=== PATIENT | male | born 1935 | race Caucasian/White ===

== ENCOUNTER → 2019-11-01 | Outpatient (CLI) | payer OTHER | LOC: RAD 10:21 | PROVIDERS: ATTEND Orthopaedic Surgery Orthopaedic Surgery of the Spine | DX: M54.5 Low back pain (principal); M48.062 Spinal stenosis, lumbar region with neurogenic claudication; M51.36 Other intervertebral disc degeneration, lumbar region; M43.16 Spondylolisthesis, lumbar region; M25.78 Osteophyte, vertebrae; I70.0 Atherosclerosis of aorta; Z98.890 Other specified postprocedural states ==

== ENCOUNTER → 2019-12-04 | Outpatient (CLI) | payer OTHER ==
[~2019-12-04] VITALS: Ht 185.4 cm; Wt 78.5 kg
[~2019-12-04] MED LIST: ALVESCO6.1 GM INH; AMITRIPTYLINE H25 M4 PO; CETIRIZINE HCL5 MG PO; CHEST CONGESTI400 MG PO; CRESTOR40 MG PO; DILTIAZEM 24HR240 M1 PO; ELIQUIS5 MG PO; FLOMAX0.4 MG PO; FLONASE 0.05%50 MCG NARES; FUROSEMIDE 40 M40 MG PO; NORCO 5-325 TA1 EAC2 PO; POTASSIUM20 PO; PROAIR DIGIHAL90 MCG INH; PROSCAR 5MG TABL5 M1 PO; STIOLTO RESPIMAT4 GM INH
[2019-12-04 14:44] VITALS: BP 113/59
--- NOTE | 2019-12-04 15:18 | NUR ---
Pain Clinic Assessment: 1. History of Osteoarthritis: History of Rheumatoid Arthritis: 2. Height: 6 ft. 1 in. 185.4 cm. Weight: 173.0 lb. oz. 78.472 kg. Patient's BMI: 22.8 3. Vital Signs: BP: 113/59 Pulse: 82 Resp: 14 Temp: 02 Sat: 100 ECG Mon: 4. Pain Intensity: 4 5. Fall Risk: Dizziness: N Needs help standing or walking: Y Fallen in the last 3 months: N Fall risk comments: 6. Patient on Blood Thinner: 7. History of Hypertension: 8. Opioid Therapy greater than 6 weeks: Opiate Contract Signed: 9. Risk Assessment Tool Provided: 10. Functional Assessment Tool: 11. Recreational Drug Use: Drug Type: Tobacco Use: Tobacco Type: Amount or Packs/day: How Many Years: Alcohol Use: Frequency: Quant:
--- NOTE | 2019-12-04 15:49 | NUR ---
Pain Clinic Assessment: 1. History of Osteoarthritis: Left Lower Extremity Right Lower Extremity Right Upper Extremity Right Lower Extremity History of Rheumatoid Arthritis: Not Applicable 2. Height: 6 ft. 1 in. 185.4 cm. Weight: 173.0 lb. oz. 78.472 kg. Patient's BMI: 22.8 3. Vital Signs: BP: 113/59 Pulse: 82 Resp: 14 Temp: 02 Sat: 100 ECG Mon: 4. Pain Intensity: 4 5. Fall Risk: Dizziness: N Needs help standing or walking: Y Fallen in the last 3 months: N Fall risk comments: 6. Patient on Blood Thinner: SAM 7. History of Hypertension: Y 8. Opioid Therapy greater than 6 weeks: Y Opiate Contract Signed: 9. Risk Assessment Tool Provided: 10. Functional Assessment Tool: 11. Recreational Drug Use: Never Drug Type: Tobacco Use: Never Smoker Tobacco Type: Amount or Packs/day: How Many Years: Alcohol Use: Past use Frequency: Quant:
--- NOTE | 2019-12-10 14:16 | HPC ---
[facility] [place] [address] PAIN MANAGEMENT CONSULTATION Name: YUMIKO BRUNNER Mickey Room #: REG THADDEUS Urszula#: [id number] Admission: 12/04/19 Attend Phys: Julius Baptiste DO Discharge: Date of : 37 Report #: [id number] THIS REPORT FOR: cc: Mikki Mata Kathleen M. DO Johnson, James E. DO ~ DATE OF SERVICE: 12/04/2019 REFERRING PHYSICIAN: Dr. Debra Ceja. CHIEF COMPLAINT: Low back pain, left lower extremity pain and paresthesias. HISTORY OF PRESENT ILLNESS: As you know, the patient is an 84-year-old male who reports a 5-6 year history of low back pain, left lower extremity pain and paresthesias. The patient has sought evaluation through multiple physicians groups, undergoing epidural injections under fluoroscopic guidance as well as discussions of medication management treatment options for ongoing pain. He sought evaluation from a surgical standpoint with Dr. Ceja who recommended a more conservative approach initially, discussing the possibility of undergoing a spinal cord stimulator trial. The patient was subsequently then referred to our clinic after seeing Dr. Ceja on 11/28/2019. The patient indicates today pain is continuous. He describes the pain as burning, numbness and tingling. Places current pain score 4/10, daily average at 8/10, worst pain has been is 10/10. The patient states pain is exacerbated with activity such as walking, improves with sitting down and repositioning. The patient indicates previous epidural injections did provide some benefit, but they lost their efficacy. He had been on medications in the past, which did well initially, but then ultimately lost efficacy. He sought evaluation with Orthopedic Surgery to discuss surgical options and subsequently referred to our clinic to discuss the use of a spinal cord stimulator as a treatment course. PAST MEDICAL HISTORY: 1. Bleeding tendencies secondary to chronic anticoagulation. 2. Anemia. 3. Asthma. 4. Hypertension. 5. Chronic obstructive pulmonary disease. 6. Coronary artery disease. PAST SURGICAL HISTORY: See chart. SOCIAL HISTORY: The patient reports himself as a nonsmoker. He does have an extensive history of smoking 1.5-2 packs a day since 195, this is a recent discontinuation of this activity. He denies IV or illicit drug use, admits to [address] [place] [address] PAIN MANAGEMENT CONSULTATION Name: YUMIKO BRUNNER Room #: REG THADDEUS Seaman#: [id number] Admission: 12/04/19 Attend Phys: Julius Baptiste DO Discharge: Date of : 37 Report #: [id number] an occasional alcohol beverage. 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 He is not receiving disability income, he is not receiving disability benefits, and he is not in litigation in regards to pain. He is accompanied by his present in room today. REVIEW OF SYMPTOMS: Positive for recent weight change, fatigue and weakness, eye disease, wearing corrective eyewear, cataracts, nosebleeds, shortness of breath with any activity, atrial fibrillation requiring anticoagulation, frequent and recurrent coughs, COPD, frequent urination, nocturia, incontinence and dribbling to urine, memory loss with confusion, heat and cold intolerance, bleeding and bruising tendencies secondary to anticoagulation, anemia, chronic low back pain and lower extremity pain. All other review of systems negative per 12-point review of systems other than those listed in the history of present illness. Pain impact score of 50/70 indicating severe interference of daily activities secondary to pain. ALLERGIES: TRAMADOL. CURRENT MEDICATIONS: Tamsulosin 0.4 mg once a day, lovastatin 40 mg per day, K-Dur 20 mcg 4 tabs per day, tiotropium bromide once a day, Shaniko 5/325 one tab every 6 hours p.r.n. for pain, guaifenesin 400 mg once a day, furosemide 40 mg per day, Flonase 2 sprays each nostril per day, finasteride 5 mg per day, diltiazem 240 mg once a day, Zyrtec 5 mg once a day, Eliquis 5 mg b.i.d., amitriptyline 25 mg p.o. at bedtime, Alvesco inhaled once a day, albuterol 2 puffs q.4 hours p.r.n. IMAGING: Myelogram shows a moderate stenosis at L2-L3, severe stenosis at L3-L4 and L4-L5, moderate stenosis at L5-S1. PQRS: The patient has known arthritic changes of the lumbar spine. No rheumatoid arthritis. He is placing current pain score 4/10. He is a fall risk, but has not had a fall in the last 3 months. He does utilize ambulatory devices for balance. He is on blood thinners in the form of Eliquis. He is treated for hypertension. He is on chronic opioids, but reportedly has a low opioid addiction potential based on our assessment tool. Pain impact 50/70 indicating severe interference of daily activities secondary to pain. PHYSICAL EXAMINATION: VITAL SIGNS: Blood pressure 113/59, pulse 82, respiratory rate 14 and unlabored. The patient is 100% on room air, height 6 feet 1 inch tall, weight 173 pounds, BMI calculated 22.8. GENERAL: Well-developed, well-nourished, well-hydrated, frail-appearing 84-year-old male, appears older than stated age. He is placing pain today at 07/11. [facility] [address] [place] [address] PAIN MANAGEMENT CONSULTATION Name: YUMIKO BRUNNER Mickey Room #: [facility].#: [id number] Admission: 12/04/19 Attend Phys: Julius Baptiste DO Discharge: Date of : 37 Report #: [id number] HEENT: Normocephalic, atraumatic. Pupils equal, round and reactive. NEUROLOGIC: Speech is fluent for patient. He is deemed a fair historian. LUNGS: Decreased breath sounds bilaterally, prolonged expiratory phase. CARDIOVASCULAR: Irregularly irregular without gallop or rub. ABDOMEN: Soft with active bowel sounds. EXTREMITIES: Show no clubbing, no cyanosis, no appreciable edema. MUSCULOSKELETAL: Lower extremity strength is weakened bilaterally, appears to be a significant amount of deconditioning. Muscle bulk and tone is symmetrical in comparing left lower extremity over right. Seated straight leg raising negative. Supine straight leg raising is positive on the left. Anuja's test is negative. Modified Gaenslen's is positive for axial low back pain. Ankle clonus negative. Babinski is negative. Gait is antalgic favoring left lower extremity over right. The patient does have bandaging over the right elbow secondary to a dehiscent wound, status post olecranon bursectomy. ASSESSMENT: 1. Symptomatic lumbar radiculopathy. 2. 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 3. Displacement of lumbar intervertebral disk with radiculopathy. 4. Lumbosacral spondylosis with radiculopathy. 5. Chronic intractable pain. PLAN: 1. Based on today's physical exam and history the patient has provided, the description the patient uses in regards to pain as well as location of symptoms, it would appear he is suffering from lumbar radiculopathy secondary to central canal stenosis. This has been confirmed with a recent myelogram, which shows severe central canal stenosis at L3-L4 and L4-L5 and moderate central canal stenosis at L5-S1. The patient has sought evaluation through surgery, but has been advised due to his comorbidities, other treatment options would be recommended. He was subsequently then referred to our clinic to discuss spinal cord stimulator technology. The patient has been seen by other pain services in the past and received epidural injections and advised "there were no other options for treatment." He then sought evaluation through Orthopedic Surgery, who saw the patient, but due to his comorbidities was then referred to our clinic to discuss the spinal cord stimulator technology as a treatment course. The patient reports pain level today of about 4/10, which is fairly typical for him. We discussed with the patient the spinal cord stimulator technology and how it could potentially improve overall pain. We also discussed the one week trial of the device itself, which allows the patient to determine if it is going to be an effective treatment option for him. I did discuss with the patient my concern about his poor wound healing in regards to his left elbow, status post olecranon bursectomy. Given that this device is an implanted device and is made of material that could become infected, he would have to be very vigilant about [address] [address] PAIN MANAGEMENT CONSULTATION Name: YUMIKO BRUNNER Room #: REG THADDEUS Seaman#: [id number] Admission: 12/04/19 Attend Phys: Julius Baptiste, DO Discharge: Date of : 37 Report #: [id number] watching for any infections and maintaining good wound care during the permanent implant if he were to move forward. He is understanding of our concern. He is interested in the device. He was given information both in digital and written form today to review at his earliest convenience. 2. The patient will be sent for psychiatric evaluation as part of the workup for the spinal cord stimulating device. This is required by Medicare regulations. The patient was given the names of psychiatrists in the area that do perform this valuable task so that we can determine if he is a candidate from a psychosocial standpoint. He will contact the psychiatrist at his earliest convenience. Once he has completed the psychiatric evaluation, he will contact our clinic to advice of its finalization and we will find the paperwork and review those findings once they are available. If he is proven to be sound from a psychiatric standpoint, we will then move forward with scheduling the temporary implant for trial. 3. No medication changes made at today's visit. We did discuss that he would have to come off his Eliquis prior to the trial. He needs to be off the Eliquis for 3 days based on REBECA guidelines. He will need to clear with his prescribing physician that he can come off the Eliquis for those days prior to the implantation of the device and then he will also have to remain off of a full dose of Eliquis for the 7 days during the trial. Once he has completed the trial and the leads are removed, he could then go back to a full dose of Eliquis. He needs to gain clearance to be able to do the recommended anticoagulation changes. Once he has achieved this authorization, he will send it over to our clinic advising of such. 4. We wish to thank Dr. Ceja for the opportunity to see this patient in consultation. We will keep you apprised of his response to the spinal cord stimulator trial requested. Again, we wish to thank you for the opportunity to see this patient in consultation. <ELECTRONICALLY SIGNED> By: Julius Baptiste DO 12/10/19 1416 [id number] Julius Baptiste DO /nt
== END ==
LOC: PAIN 07:02
PROVIDERS: ATTEND Anesthesiology Pain Medicine
DX: M51.16 Intervertebral disc disorders with radiculopathy, lumbar region (principal); M79.605 Pain in left leg; R20.2 Paresthesia of skin; M47.27 Other spondylosis with radiculopathy, lumbosacral region; G89.29 Other chronic pain; M48.061 Spinal stenosis, lumbar region without neurogenic claudication; Z79.899 Other long term (current) drug therapy

== ENCOUNTER → 2020-01-21 | Outpatient (CLI) | payer OTHER ==
[~2020-01-21] VITALS: Ht 185.4 cm; Wt 76.7 kg
[2020-01-21 07:08] VITALS: BP 117/73
--- NOTE | 2020-01-21 07:11 | NUR ---
Pain Clinic Assessment: 1. History of Osteoarthritis: Left Lower Extremity Right Lower Extremity Right Upper Extremity Right Lower Extremity History of Rheumatoid Arthritis: Not Applicable 2. Height: 6 ft. 1 in. 185.4 cm. Weight: 169.0 lb. oz. 76.658 kg. Patient's BMI: 22.3 3. Vital Signs: BP: 117/73 Pulse: 97 Resp: 16 Temp: 02 Sat: 96 ECG Mon: 4. Pain Intensity: 6-7 5. Fall Risk: Dizziness: N Needs help standing or walking: Y Fallen in the last 3 months: Y Fall risk comments: 6. Patient on Blood Thinner: SAM 7. History of Hypertension: Y 8. Opioid Therapy greater than 6 weeks: Y Opiate Contract Signed: 9. Risk Assessment Tool Provided: LOW-3 10. Functional Assessment Tool: 50/70 11. Recreational Drug Use: Never Drug Type: Tobacco Use: Never Smoker Tobacco Type: Amount or Packs/day: How Many Years: Alcohol Use: Past use Frequency: Quant:
--- NOTE | 2020-01-22 11:11 | HPC ---
[facility] [place] [address] PAIN MANAGEMENT CONSULTATION Name: MOISES BRUNNERMaria Luz Arevalo Room #: REG GARLAND Urszula#: [id number] Admission: 01/21/20 Attend Phys: Julius Baptiste DO Discharge: Date of : 37 Report #: [id number] CC: Julius Jacques NP DATE OF SERVICE: 01/21/2020 REFERRING PHYSICIAN: Debra Olguin NP PRIMARY CARE PHYSICIAN: Mikki Mayberry Meng, DO CHIEF COMPLAINT: Low back pain, left lower extremity pain with paresthesias. HISTORY OF PRESENT ILLNESS: As you know, the patient is an 84-year-old male, reporting a 6-year history of low back pain, left lower extremity pain with paresthesias. He sought evaluation through multiple physicians undergoing epidural injections, medication management, all of which led to no significant pain improvement. He sought evaluation from a surgical standpoint, was advised to trial a spinal cord stimulator as he was not an optimal candidate given his underlying health. He was seen in consultation by our services 12/04/2019 where he was evaluated and determined to be a suitable candidate for a spinal cord stimulator trial. He was sent for psychiatric evaluation. He completed the psychiatric evaluation, this was reviewed. There was no psychopathology concerning in that documentation. He was then established today's appointment to undergo trial implantation of spinal cord stimulator to assist in lumbar radicular symptoms and left lower extremity pain. The patient reports today pain level of anywhere from 6-7/10. He has had no changes in his medical history since our last visit. He has been off his Eliquis for 3 days in preparation for today's procedure. ALLERGIES: TRAMADOL. CURRENT MEDICATIONS: Tamsulosin, lovastatin, K-Dur, tiotropium bromide, [place], guaifenesin, furosemide, Flonase, finasteride, diltiazem, Zyrtec, Eliquis, amitriptyline, Alvesco and albuterol. SOCIAL HISTORY: The patient reports himself as a nonsmoker. He does have an extensive history of 1.5-2 packs of tobacco use since 1955. He has recently discontinued this activity. Denies IV or illicit drug use. Admits to occasional alcohol beverage. 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 IMAGING: No new imaging available. PQRS: The patient has known arthritic changes of the right hip, bilateral knees, bilateral shoulders, bilateral elbows, low back and cervical spine. He is not suffering from rheumatoid arthritis, nor does he have a diagnosis of rheumatoid arthritis. He is placing current pain 6-7/10. He is a fall risk and has had falls in the past 3 months, but does utilize a roller walker for ambulation. No fall in last 30 days. He is on blood thinner in the form of Eliquis, discontinued the medication 3 days ago in preparation for today's procedure. He is treated for hypertension. He is on chronic opioids and reportedly has a low opioid addiction potential based on our assessment tool. Pain impact 50/70, severe interference of daily activities secondary to pain. PHYSICAL EXAMINATION: VITAL SIGNS: Blood pressure 117/73, pulse is 97, respiratory rate 16 and somewhat labored, O2 sat 96% on 4 liters nasal cannula. Height 6 feet 1 inch tall. Weight 169 pounds. BMI calculated 22.3. GENERAL: Well-developed, well-nourished, frail appearing 84-year-old male, appears older than stated age, placing pain today at 6-7/10. HEENT: Normocephalic, atraumatic. Pupils equal, round and reactive. Speech is fluent for patient. EXTREMITIES: Show no clubbing, no cyanosis. No appreciable edema. MUSCULOSKELETAL: Lower extremity strength is deconditioned bilaterally, though symmetrical in its presentation. Muscle bulk and tone is symmetrical in lower extremities, though once again deconditioned. Seated straight leg raising is negative. Supine straight leg raising positive on the left. Anuja's test is negative. ASSESSMENT: 1. Symptomatic lumbar radiculopathy. 2. 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 3. Displacement of lumbar intervertebral disk with radiculopathy. 4. Lumbosacral spondylosis with radiculopathy. 5. Lumbar degeneration. 6. Chronic intractable pain. PLAN: 1. The patient returns today in followup visit to undergo spinal cord stimulator trial implantation. He has completed successfully his evaluation for the device. He has undergone psychiatric evaluation, which showed no concerning psychopathology. He has discontinued his Eliquis in preparation for today's procedure. The patient and I did discuss the risks and the benefits of this procedure today. These risks include but are not necessarily limited to bleeding, bruising, infection, worsening pain, no relief of pain, also risk of temporary or permanent muscle weakness, temporary or permanent nerve damage, possible paralysis, post-dural puncture headache and . The patient states understood and wished to proceed. 2. No medication changes made at today's visit. The patient will continue current medical therapy as previously prescribed. 3. We will see the patient back in followup visit in 1 week for explantation of the spinal cord stimulating device and determine if moving on with permanent implant would be recommended. We are hopeful the patient will see good and prolonged benefit with the use of the spinal cord stimulator implanted today for a trial. DESCRIPTION OF PROCEDURE: Two lead spinal cord stimulator trial implantation under fluoroscopic guidance. After informed consent was obtained, a 22-gauge IV Hep-Lock was placed in the patient's right upper extremity. The patient was given IV prophylactic antibiotic infused slowly over 30 minutes prior to procedure. The patient was then taken to the fluoroscopy suite, placed in prone position with 2 pillows under the abdomen to decrease lumbar lordosis. Cardiopulmonary monitoring was established and the patient's vital signs were monitored throughout the procedure. The patient's thoracolumbar spine was then prepped and draped with chlorhexidine and draped in the sterile surgical fashion. No IV sedation was provided prior to procedure. AP imaging was obtained to identify and cedrick the midline positions of T10 through L2 spinous processes. The skin was anesthetized with 7 mL of 1% lidocaine on the right and 6 mL of lidocaine 1% on the left. This was done prior to the introduction of the 14-gauge 4-inch Tuohy needles. Skin entry site on the right was approximately at the level of the L1 vertebral body. Needle was advanced using a paramedian approach to the right of midline at approximately 45-degree angle. Loss of resistance to air was utilized to verify placement within the epidural space. Epidural space was entered at the T12-L1 interspace. Lateral fluoroscopic view was obtained to confirm the position of the tip of the Tuohy needle within the epidural space. Aspiration was noted to be negative for both heme or cerebrospinal fluid. The patient did not complain of pain or paresthesias during the needle placement. The spinal cord stimulating lead was then advanced through the Tuohy needle under direct visualization within the midline. The tip of the stimulating lead was aligned with the midpoint of the T7 vertebral body. This was located within the midline. Our attention was then directed to the left side. The skin entry site at this site was at the L1 vertebral body level. The 14-gauge 4-inch Tuohy needle was advanced using a paramedian approach to the left of midline. This was done at approximately 45-degree angle. Loss of resistance air was utilized to verify placement within the epidural space. Epidural space was entered at the T12-L1 interspace. Lateral fluoroscopic view was obtained to confirm position of the tip of the Tuohy needle within the epidural space. Aspiration was noted to be negative for both heme or cerebrospinal fluid. The patient did not complain of pain or paresthesias during the needle placement. The spinal cord stimulating lead was then advanced through the Tuohy needle under direct visualization. The tip of the lead was then advanced to the T8 vertebral body. A lead was not noted to be just left of midline, approximately 1-2 mm. The stylets were then removed from the leads followed by the Tuohy needles. This was done under direct visualization to confirm no movement or lead positioning change during the explantation of these 2 pieces of equipment. The stimulating leads were then attached to the externalized device today the entire system of the leads and device were then anchored to the patient's back with Steri-Strips and OpSite bandaging. The patient tolerated procedure well, carefully escorted to recovery room in stable condition. No apparent complications. The patient was advised if he begins to experience any concerning symptoms such as fever, chills, night sweats, drainage at the insertion site, worsening back pain, headache or any other symptoms concerning of infection, he is to contact the on-call pain physician. He is given a 24-hour number to contact that physician. If he has difficulty with continuation of pain, he is to contact the device traveling representative for adjustments in the device. The patient tolerated procedure well. After meeting our discharge criteria, the patient was then discharged home. He has plans to meet back with us in 1 week for explantation of device and discuss the efficacy. <ELECTRONICALLY SIGNED> By: Jluius Baptiste DO 01/22/20 1111 [id number] Julius Baptiste DO /nt
== END | disposition home or self-care (01) ==
LOC: PAIN 06:48
PROVIDERS: ATTEND Anesthesiology Pain Medicine
DX: M51.16 Intervertebral disc disorders with radiculopathy, lumbar region (principal); M48.061 Spinal stenosis, lumbar region without neurogenic claudication; M47.27 Other spondylosis with radiculopathy, lumbosacral region; G89.29 Other chronic pain; I10 Essential (primary) hypertension; M19.90 Unspecified osteoarthritis, unspecified site; Z98.890 Other specified postprocedural states; Z79.899 Other long term (current) drug therapy; Z79.01 Long term (current) use of anticoagulants; Z88.8 Allergy status to other drugs, medicaments and biological substances

== ENCOUNTER → 2020-01-28 | Outpatient (CLI) | payer OTHER ==
[~2020-01-28] VITALS: Ht 185.4 cm; Wt 78.1 kg
[2020-01-28 10:43] VITALS: BP 126/76
--- NOTE | 2020-01-28 14:27 | NUR ---
Pain Clinic Assessment: 1. History of Osteoarthritis: Left Lower Extremity Right Lower Extremity Right Upper Extremity Right Lower Extremity History of Rheumatoid Arthritis: Not Applicable 2. Height: 6 ft. 1 in. 185.4 cm. Weight: 172.2 lb. oz. 78.109 kg. Patient's BMI: 22.7 3. Vital Signs: BP: 126/76 Pulse: 92 Resp: 18 Temp: 02 Sat: 100 ECG Mon: 4. Pain Intensity: 2 5. Fall Risk: Dizziness: N Needs help standing or walking: Y Fallen in the last 3 months: N Fall risk comments: 6. Patient on Blood Thinner: JOSE JUANQUIS 7. History of Hypertension: Y 8. Opioid Therapy greater than 6 weeks: Y Opiate Contract Signed: 9. Risk Assessment Tool Provided: LOW-3 10. Functional Assessment Tool: 50/70 11. Recreational Drug Use: Never Drug Type: Tobacco Use: Never Smoker Tobacco Type: Amount or Packs/day: How Many Years: Alcohol Use: Past use Frequency: Quant:
--- NOTE | 2020-01-29 11:24 | HPC ---
[facility] [address] [place] [address] PAIN MANAGEMENT CONSULTATION Name: MYESHAYUMIKO C Room #: REG GARLAND Daniel.#: [id number] Admission: 01/28/20 Attend Phys: Julius Baptiste DO Discharge: Date of : 39 Report #: [id number] CC: Julius Pierre DATE OF SERVICE: 01/28/2020 REFERRING PHYSICIAN: Mikki Mayberry Meng, DO CHIEF COMPLAINT: Low back pain, left lower extremity pain and paresthesias. HISTORY OF PRESENT ILLNESS: As you know, the patient is an 84-year-old male who returns today in followup visit having successful spinal cord stimulator trial with reported 80% improvement in overall pain. The patient is very pleased with response to the spinal cord stimulator trial. Returning today in followup visit for explantation of device and begin the process of scheduling permanent implantation. The patient indicates pain level of 2/10 with the device on as high as 6/10 with the device off. He is very pleased with response to the device, returning today for explantation. ALLERGIES: TRAMADOL. CURRENT MEDICATIONS: Tamsulosin, rosuvastatin, potassium chloride, albuterol, amitriptyline, Eliquis, diltiazem, finasteride, fluticasone, furosemide, gabapentin, guaifenesin, hydrocodone and tiotropium bromide. SOCIAL HISTORY: The patient reports himself a nonsmoker. He has an extensive past history of smoking with 2 packs a day since 1956. He recently discontinued this activity. He denies IV or illicit drug use. Admits to occasional alcohol beverage. 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 He is accompanied by his present in room today. IMAGING: No new imaging available. PQRS: The patient has arthritic changes of the right hip, bilateral knees, bilateral shoulders, bilateral elbows, low back, lumbar spine and cervical spine. No rheumatoid arthritis. He has a pain score today 2/10. He is a fall risk, but uses a roller walker for ambulation, has not had a fall in 3 months. He is on blood thinners. He is treated for hypertension. He is on chronic opioids, has a low opiate addiction potential. Pain impact is 49/70, severe interference of daily activities secondary to pain. PHYSICAL EXAMINATION: VITAL SIGNS: Blood pressure 126/76, pulse 92, respiratory rate 18 and unlabored. He is 100% on 5 liters nasal cannula. GENERAL: Well-developed, but frail appearing 84-year-old male, appearing older than stated age, pain is rated today 2/10. HEENT: Normocephalic, atraumatic. Pupils equal, round and reactive. NEUROLOGIC: Speech is fluent for patient. He is wearing a nasal cannula. EXTREMITIES: Show no clubbing, no cyanosis. No appreciable edema. MUSCULOSKELETAL: Lower extremity strength is deconditioned bilaterally. Muscle bulk and tone is symmetrical in lower extremities. Supine straight leg raising remains positive. ASSESSMENT: 1. Symptomatic lumbar radiculopathy. 2. Severe central canal stenosis of lumbar spine. 3. Displacement of lumbar intervertebral disk with radiculopathy. 4. Lumbosacral spondylosis with radiculopathy. 5. Lumbar degeneration. 6. Chronic intractable pain. PLAN: 1. The patient returns today in followup visit for explantation of spinal cord stimulating device. He is very pleased with the Nevro device receiving 80% improvement in overall pain. He is now down to a level of 2/10, which is tolerable for him. He wishes to move forward with permanent implant. He was referred to our clinic by his orthopedic surgeon, Dr. Debra Pierre at [facility]. We will be contacting their clinic to determine whether or not she would like him to return to have the permanent implant done by herself or if she would prefer that he is referred to another facility for permanent implant. We will contact the patient with this information once it has been obtained. 2. No medication changes made at today's visit. He will continue current medical therapy as previously prescribed. 3. We will see the patient back in followup visit on an as needed basis. We are pleased to see the patient has done well with the trial implantation and wish him well with the permanent implant. PROCEDURE NOTE DESCRIPTION OF PROCEDURE: Explantation of spinal cord stimulating leads. The patient was placed in a seated position. We removed all Steri-Strips and OpSite bandaging. There were two leads in place. There is no erythema or drainage at the insertion sites. The bandaging was clean and dry. The leads were removed slowly without complications. The patient did not feel any pain or paresthesias during the explantation of the two leads. Both leads had their 8 electrodes and tips were intact. Sterile bandages were placed over each injection sites. <ELECTRONICALLY SIGNED> By: Julius Baptiste DO 01/29/20 [id number] Julius Baptiste DO /nt
== END ==
LOC: PAIN 06:55
PROVIDERS: ATTEND Anesthesiology Pain Medicine
DX: M47.26 Other spondylosis with radiculopathy, lumbar region (principal); M51.16 Intervertebral disc disorders with radiculopathy, lumbar region; M48.061 Spinal stenosis, lumbar region without neurogenic claudication; G89.29 Other chronic pain; Z79.891 Long term (current) use of opiate analgesic

== ENCOUNTER → 2020-03-18 | Outpatient (CLI) | payer OTHER ==
[~2020-03-18] MED LIST changes: +OXYCODONE HCL5 MG PO
--- NOTE | ~2020-03-18 | HPC ---
[facility] [place] [address] PAIN MANAGEMENT CONSULTATION Name: MOISES BRUNNERMaria Luz Arevalo Room #: REG GARLANDWinston Seaman#: [id number] Admission: 03/18/20 Attend Phys: Julius Baptiste DO Discharge: Date of : 37 Report #: [id number] THIS REPORT FOR: cc: Mikki Mata Kathleen M. DO Johnson, James E. DO ~ DATE OF SERVICE: 03/18/2020 CHIEF COMPLAINT: Postoperative incision check. HISTORY OF PRESENT ILLNESS: As you know, the patient is a very pleasant 84-year-old male who was referred to our clinic to trial a spinal cord stimulator trial implantation under fluoroscopic guidance. He successfully completed that trial with up to 80% improvement in overall pain. He has now gone to permanent implant, which was done last week. He is currently receiving about 60% improvement in overall pain. He returns today for adjustments in the programming, but also for the first in the series of postsurgical incision checks. The patient indicates pain today at a level of 3/10, which is quite an improvement from his evaluations in the past where he was reporting pain up to 8/10. He states that his incisions have been somewhat uncomfortable, but they are beginning to show significant resolution of pain. He returns to have of the spinal cord stimulator readjusted and evaluation of the incisions. ALLERGIES: TRAMADOL. CURRENT MEDICATIONS: Tamsulosin, rosuvastatin, potassium chloride, albuterol, amitriptyline, Eliquis, diltiazem, finasteride, fluticasone, furosemide, gabapentin, guaifenesin, hydrocodone tiotropium bromide and Keflex. SOCIAL HISTORY: The patient reports himself a nonsmoker. He has an extensive past history of smoking with 2 packs a day since 6. Denies IV or illicit drug use. Admits to occasional alcohol beverage. 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 He is accompanied by his present in room today. IMAGING: No new imaging available. PQRS: The patient has known arthritic changes of the lumbar spine, right hip, bilateral knees, bilateral shoulders, bilateral elbows and cervical spine. No rheumatoid arthritis. He is placing pain intensity today about 3/10. He is a fall risk, but has not had a fall in last 3 months. He is utilizing a roller walker for ambulation and balance. He is on a blood thinner in the form of Eliquis and has continued the therapy. He is also treated for hypertension. He is on chronic opioids, has a low opiate addiction potential. Pain impact is 50/70, severe interference of daily activities secondary to pain. PHYSICAL EXAMINATION: [address] [address] PAIN MANAGEMENT CONSULTATION Name: YUMIKO BRUNNER Room #: REG Winston Seaman#: [id number] Admission: 03/18/20 Attend Phys: Julius Baptiste DO Discharge: Date of : 37 Report #: [id number] VITAL SIGNS: Blood pressure 141/67, pulse 90, respiratory rate 18 with nasal cannula, O2 sat 98%. GENERAL: Well-developed, somewhat frail appearing 84-year-old male, appearing his age. He is placing current pain score at 3/10. HEENT: Normocephalic, atraumatic. Pupils are round. Nasal cannula in place. He is wearing a mask in compliance with COVID-19 regulations. EXTREMITIES: Show no clubbing, no cyanosis. No appreciable edema. MUSCULOSKELETAL: The patient has 2 incisions, one in the thoracolumbar area and one over the right buttock. Evaluation of the wounds show well-healing incisions. There is no erythema or drainage around the sites. There appeared to be doing very well. The patient had re-bandaging done while in the clinic today. ASSESSMENT: 1. Symptomatic lumbar radiculopathy. 2. Severe central canal stenosis of lumbar spine. 3. Displacement of lumbar intervertebral disk with radiculopathy. 4. Lumbosacral spondylosis with radiculopathy. 5. Lumbar degeneration. 6. Chronic intractable pain. PLAN: 1. The patient returns today in followup visit having now reached the one-week post-surgical timeframe from the permanent implant of a spinal cord stimulator. His incisions are healing very well. I have changed the bandaging today and he appears to be doing very well from a pain standpoint. There are mild changes in the skin tissue around the incision site consistent with healing process. There is no erythema, no drainage, no concerning findings. We have re-bandaged the area and have advised the patient to follow up with us next week for the second in the evaluations. I did advise the patient if he notes any changes in his condition in regards to these incisions, contact our clinic. We will see him more rapidly. 2. No medication changes made at today's visit. The patient will continue current medical therapy as prior prescribed. 3. The patient spent about 40 minutes of time today reprogramming his spinal cord stimulator and adjusting the coverage for his ongoing pain. We are hopeful the patient will see good benefit with this adjustment. He is currently saying he is experiencing about 60% improvement. We are hoping the adjustments made today will provide even greater analgesic benefit. 4. We will see the patient back in followup visit in 2 weeks for a second in the series of surgical incision checks. By: 1720 [id number] Julius Baptiste DO /nt
[2020-03-18 12:52] VITALS: BP 141/67
--- NOTE | 2020-03-18 12:59 | NUR ---
Pain Clinic Assessment: 1. History of Osteoarthritis: Left Lower Extremity Right Lower Extremity Right Upper Extremity Right Lower Extremity History of Rheumatoid Arthritis: Not Applicable 2. Height: ft. in. cm. Weight: lb. oz. kg. Patient's BMI: 3. Vital Signs: BP: 141/67 Pulse: 90 Resp: 18 Temp: 02 Sat: 98 ECG Mon: 4. Pain Intensity: 3 5. Fall Risk: Dizziness: N Needs help standing or walking: N Fallen in the last 3 months: N Fall risk comments: 6. Patient on Blood Thinner: ELIQUIS 7. History of Hypertension: Y 8. Opioid Therapy greater than 6 weeks: Y Opiate Contract Signed: 9. Risk Assessment Tool Provided: LOW-3 10. Functional Assessment Tool: 50/70 11. Recreational Drug Use: Never Drug Type: Tobacco Use: Never Smoker Tobacco Type: Amount or Packs/day: How Many Years: Alcohol Use: Past use Frequency: Quant:
== END ==
LOC: PAIN 06:59
PROVIDERS: ATTEND Anesthesiology Pain Medicine
DX: G89.4 Chronic pain syndrome (principal); M47.26 Other spondylosis with radiculopathy, lumbar region; M51.16 Intervertebral disc disorders with radiculopathy, lumbar region; M48.061 Spinal stenosis, lumbar region without neurogenic claudication; Z79.891 Long term (current) use of opiate analgesic

== ENCOUNTER → 2020-03-25 | Outpatient (CLI) | payer OTHER ==
[~2020-03-25] VITALS: Ht 182.9 cm; Wt 76.5 kg
--- NOTE | ~2020-03-25 | HPC ---
[facility] [place] [address] PAIN MANAGEMENT CONSULTATION Name: YUMIKO BRUNNER Mickey Room #: REG THADDEUS Seaman#: [id number] Admission: 03/25/20 Attend Phys: Ayah Maurer Discharge: Date of : 37 Report #: [id number] THIS REPORT FOR: cc: Mikki Mata Kathleen M. DO Hocker, Amanda CNS ~ DATE OF SERVICE: 03/25/2020 CHIEF COMPLAINT: Postoperative incisional check. HISTORY OF PRESENT ILLNESS: As you know, this is a pleasant 84-year-old gentleman who returns to the pain clinic today for a spinal cord stimulator implantation wound check. He is now 2 weeks post-implantation from his spinal cord stimulator and rating his pain score a 6/10. He currently believes his pain is at least 60% better in his legs and 50% better overall improvement in his pain. He does report he was adjusted this morning by a Maikol martell over the phone and then having it adjusted again today here in the clinic. He believes that this may continue to increase his overall pain control in his low back and left leg. The patient reports his pain is typically worse with walking and relieved with sitting. His is here with him today and believes that he is having better pain control than he had before the implantation. ALLERGIES: TRAMADOL. CURRENT LIST OF MEDICATIONS: Oxycodone p.r.n., Flomax, Crestor, potassium, [place] p.r.n., guaifenesin, Lasix, Flonase, finasteride, diltiazem, Zyrtec, Eliquis, amitriptyline and ProAir. PQRS: 1. He has osteoarthritis in his upper and lower extremities. Denies any rheumatoid arthritis. 2. Height is 6 feet, weight is 168, BMI is 22. 3. Vital signs 126/85, pulse is 103, respirations 18, oxygen sat is 93%. 4. Pain score 6/10. 5. Denies dizziness, does not need help walking, though does use a walker for ambulation, has not fallen in the last 3 months. The patient is on Eliquis as well as medications for hypertension. 6. The patient's risk assessment tool is low. Functional assessment is 50/70. 7. Recreational drug use, he denies. He is not a smoker and does not drink alcohol. PHYSICAL EXAMINATION: GENERAL: This is a well-developed 84-year-old gentleman who appears his stated age, utilizing a walker today, rating his pain score at 6/10. HEENT: Normocephalic, atraumatic. Extraocular eye muscles are intact. He is on oxygen and [place] [address] PAIN MANAGEMENT CONSULTATION Name: YUMIKO BRUNNER Room #: REG [facility] Urszula#: [id number] Admission: 03/25/20 Attend Phys: Ayah Maurer Discharge: Date of : 37 Report #: [id number] EXTREMITIES: No clubbing, no cyanosis, no edema. MUSCULOSKELETAL: The patient's incision in his thoracic, lumbar area is clean, dry and intact with no drainage noted on his dressing. The incision on his right buttock is intact with no drainage as well. Dressings appear clean, dry and intact. Tenderness at the site on the right buttock from his beltline. ASSESSMENT: 1. Symptomatic lumbar radiculopathy. 2. Severe central canal stenosis of lumbar spine. 3. Displacement of lumbar intervertebral disk with radiculopathy. 4. Spinal cord stimulator placement. 5. Lumbar degeneration. 6. Chronic intractable pain. PLAN: 1. We discussed treatment options with the patient today. The [employer] rep was here and reprogrammed the patient. The patient feels that current program has already been beneficial in decreasing some of his lower extremity pain. He is hopeful that it will continue to improve his pain and thankful that he can contact them via the phone for adjustments. 2. We did change the dressings on his thoracic, lumbar and right buttock with new dressings, encouraged the patient to continue to wear a dressing for comfort over his right buttock until it is well healed. Informed him he may shower, but not to submerge in water and allowing the water to briefly cleanse the area. 3. No medications were provided for this patient. We reminded him to have those from his primary doctor, Dr. Mata. 4. The patient will be seen as needed for followup. The patient is seen today in collaboration with Dr. Julius Baptiste. By: 1412 1824 Ayah Maurer /devin
[2020-03-25 13:17] VITALS: BP 126/85
--- NOTE | 2020-03-25 13:19 | NUR ---
Pain Clinic Assessment: 1. History of Osteoarthritis: Left Lower Extremity Right Lower Extremity Right Upper Extremity Right Lower Extremity History of Rheumatoid Arthritis: Not Applicable 2. Height: 6 ft. 0 in. 182.9 cm. Weight: 168.6 lb. oz. 76.476 kg. Patient's BMI: 22.9 3. Vital Signs: BP: 126/85 Pulse: 103 Resp: 18 Temp: 02 Sat: 93 ECG Mon: 4. Pain Intensity: 6 5. Fall Risk: Dizziness: N Needs help standing or walking: N Fallen in the last 3 months: N Fall risk comments: 6. Patient on Blood Thinner: SAM 7. History of Hypertension: Y 8. Opioid Therapy greater than 6 weeks: Y Opiate Contract Signed: 9. Risk Assessment Tool Provided: LOW-3 10. Functional Assessment Tool: 50/70 11. Recreational Drug Use: Never Drug Type: Tobacco Use: Never Smoker Tobacco Type: Amount or Packs/day: How Many Years: Alcohol Use: Past use Frequency: Quant:
== END ==
LOC: PAIN 06:55
PROVIDERS: ATTEND Clinical Nurse Specialist Adult Health
DX: M51.16 Intervertebral disc disorders with radiculopathy, lumbar region (principal); M48.061 Spinal stenosis, lumbar region without neurogenic claudication; G89.4 Chronic pain syndrome; Z79.899 Other long term (current) drug therapy

== ENCOUNTER → 2020-07-29 | Outpatient (CLI) | payer OTHER ==
[~2020-07-29] VITALS: Ht 182.9 cm; Wt 77.6 kg
[~2020-07-29] MED LIST changes: +HYDROCODON-ACE1 EAC8 PO; +NEURONTIN300 MG PO
[2020-07-29 10:47] VITALS: BP 138/76
--- NOTE | 2020-07-29 10:50 | NUR ---
Pain Clinic Assessment: 1. History of Osteoarthritis: Left Lower Extremity Right Lower Extremity Right Upper Extremity Right Lower Extremity History of Rheumatoid Arthritis: Not Applicable 2. Height: 6 ft. 0 in. 182.9 cm. Weight: 171.0 lb. oz. 77.565 kg. Patient's BMI: 23.2 3. Vital Signs: BP: 138/76 Pulse: 74 Resp: 16 Temp: 02 Sat: 100 ECG Mon: 4. Pain Intensity: 6 5. Fall Risk: Dizziness: N Needs help standing or walking: N Fallen in the last 3 months: N Fall risk comments: 6. Patient on Blood Thinner: SAM 7. History of Hypertension: Y 8. Opioid Therapy greater than 6 weeks: Y Opiate Contract Signed: 9. Risk Assessment Tool Provided: LOW-3 10. Functional Assessment Tool: 50/70 11. Recreational Drug Use: Never Drug Type: Tobacco Use: Never Smoker Tobacco Type: Amount or Packs/day: How Many Years: Alcohol Use: Past use Frequency: Quant:
--- NOTE | 2020-08-04 07:49 | HPC ---
[facility] [place] [address] PAIN MANAGEMENT CONSULTATION Name: MOISES BRUNNERMaria Luz Arevalo Room #: REG [facility] Seaman#: [id number] Admission: 07/29/20 Attend Phys: Julius Baptiste DO Discharge: Date of : 37 Report #: [id number] THIS REPORT FOR: cc: Mikki Mata,Julius Cheema DO ~ DOC #: [id number] cc: DO Julius Bourne DO DATE OF SERVICE: 07/29/2020 REFERRING PHYSICIAN: Mikki Mata DO CHIEF COMPLAINT: Back pain, left lower extremity pain. HISTORY OF PRESENT ILLNESS: As you know, the patient is an 84-year-old male who was referred to our service for trial of spinal cord stimulator implantation. He has now gone to permanent implant in March, reporting excellent benefit of his symptoms with the trial implantation of 80%. He now has turned off the device. He has not been using it nor has he made any adjustments in the device. As you are aware, spinal cord stimulator devices require somewhere between 12-18 adjustments over a period of time to capture pain appropriately. The patient has been very noncompliant with the use of the device. He returns today in followup visit to discuss his options for treatment. He is placing his current pain score at 6/10. The patient has suffered no new injury, new trauma or any changes in medical history since our last visit. ALLERGIES: TRAMADOL. CURRENT MEDICATIONS: Albuterol 2 puffs q. 4 hours p.r.n. pain, tamsulosin 0.4 mg once a day, rosuvastatin 40 mg per day, potassium chloride 20 mEq p.o. every day, tiotropium bromide p.r.n., guaifenesin 400 mg p.o. every day, furosemide 40 mg per day, fluticasone 2 sprays each nostril per day, finasteride 5 mg per day, diltiazem ER 240 mg per day, cetirizine 5 mg per day, Eliquis 5 mg per day, amitriptyline 25 mg p.o. at bedtime. SOCIAL HISTORY: The patient reports he continues to smoke. Denies IV or illicit drug use. Denies any chronic alcohol use. 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 He is not working, not receiving Workmen's Compensation, accompanied by his , present in room today. IMAGING: No new imaging is available. PQRS: The patient has known arthritic changes of the cervical spine, lumbar spine, bilateral hips and knees. No rheumatoid arthritis, placing current pain score 6/10. He is a fall risk, but has not had a fall in last 3 months. He [address] [address] PAIN MANAGEMENT CONSULTATION Name: YUMIKO BRUNNER Room #: REG [facility].#: [id number] Admission: 07/29/20 Attend Phys: Julius Baptiste DO Discharge: Date of : 37 Report #: [id number] utilizes a roller walker for daily ambulation. He is on blood thinner in form of Eliquis. He is treated for hypertension. He is on chronic opioids. He has a moderate addiction potential based on our assessment tool. Pain impact 50/70. Severe interference of daily activities secondary to pain. PHYSICAL EXAMINATION: VITAL SIGNS: Blood pressure 138/76, pulse 74, respiratory rate 16 and unlabored. The patient is 100% on room air, height 6 feet tall, weight 171 pounds, BMI calculated 23.2. GENERAL: Well-developed, ill-appearing, frail-appearing 84-year-old male, appears much older than stated age. Pain is rated as 6/10. HEENT: Normocephalic, atraumatic. He is intact to extraocular muscle movement. Wearing a mask in compliance with COVID-19 regulations. EXTREMITIES: Show mild clubbing, no cyanosis, no edema. MUSCULOSKELETAL: The patient has tenderness to palpation over the lower lumbar spine. No spinous process tenderness. Seated straight leg raising negative. Supine straight leg raising negative. Anuja's test is negative. Modified Gaenslen test is positive for axial low back pain. ASSESSMENT: 1. Symptomatic lumbar radiculopathy. 2. Severe central canal stenosis. 3. Displacement of lumbar intervertebral disk with radiculopathy. 4. Lumbosacral spondylosis with radiculopathy. 5. Lumbar degeneration. 6. Medical noncompliance. 7. Chronic intractable pain. PLAN: 1. The patient returns today in followup visit with increasing back pain. He has gone to a permanent implant with a spinal cord stimulator, but has made little attempt at utilizing the device. In fact, we had the device interrogated today by the device event sales representative and this device has not even been on in the last 2 weeks. The patient states that he was not receiving benefit and turned the device off. We discussed at length that the spinal cord stimulators take either anywhere from 12 to 18 adjustments in the programming just to begin to notice efficacy. I discussed this with the patient today. It is a shame that the patient is not compliant with the use of the device, as I believe this would provide some benefit. We have restarted the device, reeducated the patient on the use of the device and have advised that he will be following up with the device event sales representative every couple of weeks to make adjustments in that therapy. I advised the patient that his medication management suggestions and treatments are predicated on the fact that he utilizes the device appropriately. We made these adjustments today. We will see him back in followup visit to discuss efficacy once he has a chance to utilize device on a daily basis. 2. The patient requests what treatment options he has available. [address] [address] PAIN MANAGEMENT CONSULTATION Name: YUMIKO BRUNNER Room #: REG [facility] Daniel.#: [id number] Admission: 07/29/20 Attend Phys: Julius Baptiste DO Discharge: Date of : 37 Report #: [id number] Unfortunately, he has completed all conservative treatments with no benefit. We could make further adjustments in his medication management, but I did advise the patient chronic opioids will not be a staple of treatment. There is no literature that shows the chronic pain for lumbar radicular symptoms secondary to severe central canal stenosis has any long-term improvement in symptoms and VAS score rarely change with the use of opioids. We recommend neuropathic pain medications, and we will provide a short dosing of opioid medication with the understanding that these will not be provided longer than a 3-month period. His only other option is to decompress the lumbar spine, which is going to be necessary based on imaging studies and the progression of his pain. 3. The patient will be started on gabapentin 300 mg dose 1 tab p.o. at bedtime continue for 3 nights, then 2 tabs p.o. at bedtime for 3 nights, then 3 tabs p.o. at bedtime for 3 nights. No improvement in symptoms, no side effects then begin 1 tab in the morning, continuing 3 tab at night for 3 days, then 2 tabs in the morning and 3 tabs at night for 3 days, then 3 tabs t.i.d. I have given the patient 180 tablets to begin the titration. He will monitor for any side effects of sleepiness, disorientation, or confusion. If he notes any side effects, decrease to the dose prior and contact our clinic. If no improvement in symptoms, no side effects, continue de-escalation. If he does note benefit with the use of the medication, stabilize at that dose, no further escalation. 4. I provided the patient with the first month of hydrocodone refills. He was advised we will be more than willing to provide a 3-month prescription of this medication, as we adjust his spinal cord stimulator and his neuropathic medications, but long-term opioid therapy has no benefit long-term in treating these issues. The patient was given hydrocodone 7.5/325 one tab q.12 hours p.r.n. I have given the patient #60 tablets with the understanding that he will take this only as pain is requiring, not to rely on the medication prophylactically. This will last for an entire 30 days. 5. We will see the patient back in followup visit in approximately 2 weeks for further adjustments of his spinal cord stimulator and to discuss the efficacy of the gabapentin and once again discuss his potential surgical options. DO RASHAUN Salinas/ISIAH/MARGARETJ <ELECTRONICALLY SIGNED> By: Julius Baptiste DO 08/04/20 0749 [id number] 1403 Julius Baptiste DO /nt
== END ==
LOC: PAIN 09:54
PROVIDERS: ATTEND Anesthesiology Pain Medicine
DX: M48.061 Spinal stenosis, lumbar region without neurogenic claudication (principal); M51.16 Intervertebral disc disorders with radiculopathy, lumbar region; M47.26 Other spondylosis with radiculopathy, lumbar region; G89.4 Chronic pain syndrome; M79.662 Pain in left lower leg; Z79.899 Other long term (current) drug therapy; Z79.891 Long term (current) use of opiate analgesic; Z88.6 Allergy status to analgesic agent

== ENCOUNTER → 2020-09-29 | Outpatient (CLI) | payer OTHER ==
[~2020-09-29] VITALS: Ht 182.9 cm; Wt 77.0 kg
[~2020-09-29] MED LIST changes: +LYRICA 75 MG CA75 MG PO
[2020-09-29 11:18] VITALS: BP 110/66
--- NOTE | 2020-09-29 11:25 | NUR ---
Pain Clinic Assessment: 1. History of Osteoarthritis: Left Lower Extremity Right Lower Extremity Right Upper Extremity Right Lower Extremity History of Rheumatoid Arthritis: Not Applicable 2. Height: 6 ft. 0 in. 182.9 cm. Weight: 169.8 lb. oz. 77.021 kg. Patient's BMI: 23.0 3. Vital Signs: BP: 110/66 Pulse: 81 Resp: 16 Temp: 02 Sat: 100 ECG Mon: 4. Pain Intensity: 8 5. Fall Risk: Dizziness: N Needs help standing or walking: Y Fallen in the last 3 months: N Fall risk comments: 6. Patient on Blood Thinner: JOSE JUANQUIS 7. History of Hypertension: Y 8. Opioid Therapy greater than 6 weeks: Y Opiate Contract Signed: 9. Risk Assessment Tool Provided: LOW-3 10. Functional Assessment Tool: 50/70 11. Recreational Drug Use: Never Drug Type: Tobacco Use: Never Smoker Tobacco Type: Amount or Packs/day: How Many Years: Alcohol Use: Past use Frequency: Quant:
--- NOTE | 2020-09-30 07:52 | HPC ---
[facility] [place] [address] PAIN MANAGEMENT CONSULTATION Name: MYESHAMOISESMaria Luz Arevalo Room #: REG THADDEUS Seaman#: [id number] Admission: 09/29/20 Attend Phys: Ayah Maurer Discharge: Date of : 37 Report #: [id number] THIS REPORT FOR: cc: Mikki Mata Kathleen M. DO Hocker, Amanda CNS ~ DOC #: [id number] cc: Mikki Mata DO, James E. Johnson, DO Amanda Hocker, [employer]ING [employer]CHNICIAN DATE OF SERVICE: 09/29/2020 CHIEF COMPLAINT: Back pain, left lower extremity pain and paresthesias. HISTORY OF PRESENT ILLNESS: An 84-year-old gentleman who returns to the pain clinic today to discuss his ongoing pain issues. Today, he is reporting his pain score at 8/10, mostly problematic in his feet bilaterally, though he does have ongoing low back pain. He reports that his pain, feels like he has a "stone bruise" on the bottom of his feet at all times. It is very difficult to walk, even putting any pressure causes pain as he described as a constant burning sensation. He reports that sitting and lying down are the best positions for him. He does report he had been on gabapentin as high as 1500 mg twice a day, which was ineffective in controlling his pain, so he has slowly decreased his medication, now currently taking 600 in the morning and 900 at night. He does continue to take hydrocodone 7.5/325 on as needed basis. He denies any constipation with this medication. He does report that that medication he has used only on as needed basis. The patient reports that he does use his spinal cord stimulator 24 hours a day. He does not feel that it is overly beneficial in helping decrease his pain. He does report to me though that he has not tried to set it off for decreased sensation to see if his pain is worse without the device. Today, he is wondering if there are any other options to help his ongoing pain. ALLERGIES: TRAMADOL. CURRENT LIST OF MEDICATIONS: Gabapentin p.r.n., hydrocodone 7.5/325 p.r.n., Flomax, Crestor, potassium, guaifenesin, Lasix, Flonase, Proscar, diltiazem, Zyrtec, Eliquis, amitriptyline, ProAir. PQRS: 1. He has osteoarthritic changes in his upper and lower extremities as well as his cervical and lumbar spine, hips, and knees. Denies any rheumatoid arthritis. 2. Height is 6 feet, weight is 169. BMI is 23. 3. Vital signs: Blood pressure 110/66, pulse is 61, respirations 18, oxygen sat 100%. [address] [address] PAIN MANAGEMENT CONSULTATION Name: MYESHAYUMIKO C Room #: [facility].#: [id number] Admission: 09/29/20 Attend Phys: Ayah Maurer Discharge: Date of : 37 Report #: [id number] 4. Pain score is 8/10. 5. Denies dizziness. Does use a walker at all times. Has not fallen in the last 3 months. 6. He is on Eliquis. He does have medicines for hypertension. 7. Opioid therapy is greater than six weeks. His risk assessment is low. FUNCTIONAL ASSESSMENT: 50/70. 8. Recreational drug use, he denies. He is not a smoker and does not drink alcohol currently. According to the prescription monitoring system, his last prescription of opioids was 07/29/2020, filling them from our physician. His morphine mEq less than 20 MME per day. PHYSICAL EXAMINATION: GENERAL: This is alert and orientated well-developed, frail 84-year-old gentleman who is wearing oxygen, rating his pain score at 8/10. HEENT: Normocephalic, atraumatic. Extraocular eye muscles are intact. He is wearing a mask and nasal cannula oxygen at 3 liters. EXTREMITIES: No cyanosis, no edema with some mild clubbing noted. MUSCULOSKELETAL: Tenderness in his lumbosacral region. Straight leg raising is negative. Modified ganglion is positive for axial low back pain. Tenderness in his bilateral feet, greater on the right than the left. Uses a walker and has a very antalgic gait. ASSESSMENT: 1. Symptomatic lumbar radiculopathy. 2. Severe central canal stenosis. 3. Displacement of lumbar intervertebral disk with radiculopathy. 4. Lumbar spondylosis with radiculopathy. 5. Lumbar degeneration. 6. Chronic intractable pain. 7. Spinal cord stimulator, Nevro device. PLAN: 1. We discussed treatment options with the patient today. The patient does find the hydrocodone is slightly beneficial in decreasing his pain. He has utilized 60 tablets in the last two months. So, he does not take this on a regular basis. We will continue him on the hydrocodone 7.5/325 #60 tablets will be sent electronically by Dr. Julius Baptiste. 2. The patient complains of significant neuropathy in his feet. Feels the gabapentin is not as beneficial as it has been in the past even at at higher doses. He has slowly decreased this. I did discuss this case with Dr. Julius Baptiste and we decided to rotate him to Lyrica 75 mg tablets escalating this dose slowly to see if that is beneficial in helping with his bilateral feet pain. The patient instructed to take 1 tablet twice a day for seven days, then increase to 1 tablet in the morning, 2 pills at night for 7 days, then increase [facility] [address] [place] [address] PAIN MANAGEMENT CONSULTATION Name: YUMIKO BRUNNER Room #: REG THADDEUS Seaman#: [id number] Admission: 09/29/20 Attend Phys: Ayah Maurer Discharge: Date of : 37 Report #: [id number] to 2 tablets b.i.d. x7 days and slowly titrating to the goal of 3 tablets b.i.d. The patient instructed to stop at the lowest most effective dose that he finds beneficial. Scripts sent for 120 tablets of Lyrica 75 mg. The patient is instructed to stop his gabapentin when he starts his Lyrica. 3. The patient will follow up in 1 month. At that time, we will reassess his Lyrica dose and have Nevro here to adjust his spinal cord stimulator. The patient and are agreeable with this plan of care. Time spent with the patient in consultation, reviewing recent studies, clinical notes and physician reports, physical examination and correlation of findings and medical documentation to determine possible treatment options, 16 minutes. Time spent and preparation for appointment reviewing prescription monitoring reports, reviewing previous records and proposed treatment options, reviewing current medications, 5 minutes. Total time spent preparing and sending electronic prescriptions with collaborating physician, Dr. Julius Baptiste documentation of visit and plan of treatment 5 minutes. Total time spent 26 minutes. ENDY Grimes/AMEE <ELECTRONICALLY SIGNED> By: Ayah Maurer 09/30/20 0752 [id number] Ayah Maurer /nt
== END ==
LOC: PAIN 09-15 09:28
PROVIDERS: ATTEND Clinical Nurse Specialist Adult Health
DX: M51.16 Intervertebral disc disorders with radiculopathy, lumbar region (principal); M47.26 Other spondylosis with radiculopathy, lumbar region; G89.4 Chronic pain syndrome; M48.061 Spinal stenosis, lumbar region without neurogenic claudication; Z79.899 Other long term (current) drug therapy; Z79.891 Long term (current) use of opiate analgesic

== ENCOUNTER → 2020-11-03 | Outpatient (CLI) | payer OTHER ==
[~2020-11-03] VITALS: Ht 182.9 cm; Wt 72.2 kg
[~2020-11-03] MED LIST changes: +HYDROCODONE-AP1 EA11 PO
[2020-11-03 11:12] VITALS: BP 117/81
--- NOTE | 2020-11-03 11:24 | NUR ---
Pain Clinic Assessment: 1. History of Osteoarthritis: Left Lower Extremity Right Lower Extremity Right Upper Extremity Right Lower Extremity History of Rheumatoid Arthritis: Not Applicable 2. Height: 6 ft. 0 in. 182.9 cm. Weight: 159.2 lb. oz. 72.213 kg. Patient's BMI: 21.6 3. Vital Signs: BP: 117/81 Pulse: 85 Resp: 14 Temp: 02 Sat: 100 ECG Mon: 4. Pain Intensity: 6 5. Fall Risk: Dizziness: N Needs help standing or walking: Y Fallen in the last 3 months: Y Fall risk comments: 6. Patient on Blood Thinner: JOSE JUANQUIS 7. History of Hypertension: Y 8. Opioid Therapy greater than 6 weeks: Y Opiate Contract Signed: 9. Risk Assessment Tool Provided: LOW-3 10. Functional Assessment Tool: 50/70 11. Recreational Drug Use: Never Drug Type: Tobacco Use: Never Smoker Tobacco Type: Amount or Packs/day: How Many Years: Alcohol Use: Past use Frequency: Quant:
--- NOTE | 2020-11-04 08:23 | HPC ---
[facility] [place] [address] PAIN MANAGEMENT CONSULTATION Name: MOISES BRUNNERMaria Luz Arevalo Room #: REG THADDEUS Sanchez.#: [id number] Admission: 11/03/20 Attend Phys: Ayah Maurer Discharge: Date of : 37 Report #: [id number] THIS REPORT FOR: cc: Mikki Mata Kathleen M. DO Hocker, Amanda CNS ~ cc: Dr. Mikki Mata, Julius Baptiste DO DATE OF SERVICE: 11/03/2020 CHIEF COMPLAINT: Back pain, left lower extremity pain and paresthesias. HISTORY OF PRESENT ILLNESS: As you know, this is an 84-year-old almost 85-year-old gentleman who returns to the pain clinic today for discussion on his medications. Today, he is reporting his pain score at 6/10. It is located in his lower back, legs and feet. He describes it as a constant burning sensation that is worse with any walking and activity, but better when he is sitting. His pain score today at 6/10. At his last visit, we had rotated him from gabapentin to Lyrica and encouraged him to titrate up to the most effective dose has minimal side effects. He is reporting today taking Lyrica 75 in the morning and 150 at bedtime. He does report some somnolence with this medication and had not tried to increase any further of the dosage. The patient is also reporting that he would like a stronger medication for his pain such as oxycodone. His is here present with him today when I reported that we have not prescribed that medication for him and asked where he had obtained this medication. She had stated that she had given him some of her medication and it was beneficial. The patient reports that hydrocodone is like taking candy and it does not work for his pain. The patient is also to have his spinal cord stimulator evaluated and programs adjusted. The manufacturers representative is here today. The patient is also wondering about medical marijuana at this visit. ALLERGIES: TRAMADOL. CURRENT LIST OF MEDICATIONS: Lyrica 75 in the morning and 150 at night, hydrocodone 7.5/325 b.i.d., Flomax, Crestor, potassium, Stiolto inhaler, guaifenesin p.r.n., Lasix, Flonase, Proscar, diltiazem, Zyrtec, Eliquis, amitriptyline, and ProAir. PQRS: 1. He has arthritic changes in his upper and lower extremities. Denies any rheumatoid arthritis. Height is 6 feet, weight is 159. BMI is 21. 2. Vital signs; blood pressure 117/81, pulse is 85, respirations are 14, oxygen sat is 100%. 3. Pain score 6/10. [address] [address] PAIN MANAGEMENT CONSULTATION Name: MOISES BRUNNERMaria Luz Arevalo Room #: REG [facility] Daniel.#: [id number] Admission: 11/03/20 Attend Phys: Ayah Maurer Discharge: Date of : 37 Report #: [id number] 4. Denies dizziness. Does need assistance with ambulation, utilizes a walker and has fallen in the last 3 months. The patient is also on oxygen. 5. The patient is on Eliquis as well as medications for hypertension. 6. His opioid therapy is greater than 6 weeks. 7. His risk assessment is low, functional assessment is 50/70. 8. Recreational drug use, he denies. He is not a smoker and does not drink alcohol currently. According to the prescription monitoring system, the patient is filling his medications appropriately. He is due to fill these today. His morphine mEq 22 MME. PHYSICAL EXAMINATION: GENERAL: This is alert and orientated, well-developed, frail-appearing 84-year-old gentleman who is wearing 4 liters of nasal cannula oxygen, rating his pain score today at 6/10. HEENT: Normocephalic and atraumatic. Extraocular eye muscles are intact. He has a nasal cannula in his nares and is wearing a mask. EXTREMITIES: No cyanosis, no edema. Some clubbing noted. MUSCULOSKELETAL: He has tenderness to palpation over the lower lumbar spine. No spinous process tenderness. Seated straight leg raising is negative. Modified ganglion is positive for axial low back pain. He does have a spinal cord stimulator in his buttock. He has a slow antalgic gait. IMPRESSION: 1. Symptomatic lumbar radiculopathy. 2. Severe central canal stenosis. 3. Displacement of lumbar intervertebral disk with radiculopathy. 4. Lumbar spondylosis with radiculopathy. 5. Lumbar degeneration. 6. Spinal cord stimulator implant. 7. Medical noncompliance. 8. Chronic intractable pain, utilizing scheduled opioid medications. PLAN: 1. We discussed treatment options with the patient today. According to the manufacturers representative for the spinal cord stimulator device, he has not attempted to use any adjustments that he made at his last appointment. I have encouraged the patient to utilize this device that he did have an implanted to help decrease his overall pain in his low back and legs. He was given a written card from the manufacturers representative of the different programs he has available. 2. We discussed an increase in his medications, I believe since he is not utilizing his current therapeutic devices to decrease his pain, we will not be increasing his opioid medications. We encouraged him lowest most effective dose of medication and to utilize his spinal cord stimulator to help decrease his pain. We also discussed that there may be issues with supply of medications due [facility] [address] [place] [address] PAIN MANAGEMENT CONSULTATION Name: MYESHAYUMIKO C Room #: REG [facility] Daniel.#: [id number] Admission: 11/03/20 Attend Phys: Ayah Maurer Discharge: Date of : 37 Report #: [id number] to changes in the distribution of the medications. We reminding him that we will transfer his prescription once, so we will not provide multiple small scripts at different pharmacies. 3. The patient does report that he feels oxycodone is more beneficial than his hydrocodone taking his . We explained that he should not take other people's medications only the ones that are doctor prescribes. Dr. Julius Baptiste will continue him on hydrocodone 7.5/325 #60 sent today and 4 weeks. 4. We did discuss the Lyrica medication, which he is finding beneficial in helping some of his neuropathic pain in his lower extremities, though he is having some side effects of sleepiness with this medication. I explained that typically it does get better than the longer his body adjusts to his medication and for him to trial 75 in the morning, 75 midday, and 150 at night to see if he tolerates this medication, but reminding him lowest most effective dose, which he may have already achieved. 5. We did briefly discuss medical marijuana. I have given him the number for the Kuldeep Chaparro doctor. Reminding the patient that if he does seek medical marijuana options, we will no longer write any opioid medications for him, but will continue him on his Lyrica medication. His was present through all of this discussion today. The patient will return in 2 months. Time spent with the patient in consultation, reviewing pertinent imaging, reviewing recent studies and clinical notes and physician reports, physical examination and correlation of findings and medical documentation to determine possible treatment options 18 minutes. Time spent in preparing for appointment, reviewing prescription monitoring reports, reviewing previous records and proposed treatment options, reviewing current medications 5 minutes. Time spent preparing and sending electronic prescriptions with collaborating physician, Dr. Julius Baptiste and documentation of visit and plan of treatment 5 minutes. Total time spent 28 minutes. <ELECTRONICALLY SIGNED> By: Ayah Maurer 11/04/20 0823 [id number] [id number] Ayah Maurer /nt
== END ==
LOC: PAIN 10-28 10:14
PROVIDERS: ATTEND Clinical Nurse Specialist Adult Health
DX: M51.16 Intervertebral disc disorders with radiculopathy, lumbar region (principal); M47.26 Other spondylosis with radiculopathy, lumbar region; M48.061 Spinal stenosis, lumbar region without neurogenic claudication; Z96.82 Presence of neurostimulator; G89.4 Chronic pain syndrome; Z79.899 Other long term (current) drug therapy; Z79.891 Long term (current) use of opiate analgesic